=== PATIENT | male | born 1965 | race Caucasian/White ===

== ENCOUNTER → 2022-07-31 15:47 | Outpatient (CLI) | payer OTHER, SELFPAY ==
--- NOTE | ~2022-07-31 | CT_ITS ---
CT scan of the Neck Technique: 2.5 mm axial scans were obtained through the neck after intravenous administration of 75 c c Omnipaque 350. Coronal and sagittal reconstructions of the neck were obtained. Dose reduction techn ique was used on this scan by utilizing automated exposure control and iterative reconstruction techn ique. The dose-length product (DLP) was 461.68 mGy-cm. Clinical History: Enlarged lymph nodes Findings: Mildly prominent submental/submandibular lymph nodes are present. Parapharyngeal spaces appear normal bilaterally. The parotid and submandibular glands appear normal. The pharyngeal mucosal spaces appear normal. No soft tissue masses are seen in the neck. Subcentimeter right thyroid lobe nodules are noted. Images of the lung apices reveal no abnormalities . Paranasal sinuses and mastoid air cells are clear. Impression: Mildly prominent submental/submandibular lymph nodes, nonspecific. These could represent reactive/inf lammatory lymph nodes. Lymphoma/metastatic disease cannot be completely excluded, but felt to be less likely. Reviewed, dictated and finalized at [facility]. Impression: Mildly prominent submental/submandibular lymph nodes, nonspecific. These could represent reactive/inflammatory lymph nodes. Lymphoma/metastatic disease cannot be completely excluded, but felt to be less likely.
== END ==
PROVIDERS: PCP Family Medicine; Visit Provider Otolaryngology
DX: R59.0 Localized enlarged lymph nodes (principal); E07.9 Disorder of thyroid, unspecified
CPT/HCPCS: 70491; Q9967